=== PATIENT | female | born 1980 | race Two or more races ===

== ENCOUNTER 2021-12-09 19:06 | Emergency (ER) | payer OTHER ==
[~2021-12-09] VITALS: Ht 160 cm; Wt 92.1 kg
[2021-12-09] MEDS ORDERED: DICLOFENAC SODI75 MG PO (20:42)
== END 2021-12-09 21:48 | disposition home or self-care (01) ==
LOC: ER 19:06
DX: M25.532 Pain in left wrist (principal)